=== PATIENT | female | born 1985 | race Two or more races ===

== ENCOUNTER → 2016-11-29 | Outpatient (CLI) | payer OTHER ==
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
== END ==
LOC: M PAIN 15:20
PROVIDERS: ATTEND Anesthesiology
DX: M79.2 Neuralgia and neuritis, unspecified (principal); G89.29 Other chronic pain; Z88.5 Allergy status to narcotic agent

== ENCOUNTER → 2017-01-14 | Outpatient (CLI) | payer OTHER ==
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
== END | disposition home or self-care (01) ==
LOC: M PAIN 15:45
PROVIDERS: ATTEND Anesthesiology
DX: G89.29 Other chronic pain (principal); G97.1 Other reaction to spinal and lumbar puncture; M79.2 Neuralgia and neuritis, unspecified; M62.82 Rhabdomyolysis; Z79.899 Other long term (current) drug therapy; Z88.2 Allergy status to sulfonamides; Z88.5 Allergy status to narcotic agent

== ENCOUNTER 2017-04-28 17:46 | Inpatient (IN) | payer OTHER ==
[2017-04-28 20:05] LABS: MEAN CORPUSCULAR HEMOGLOBIN 29.3 pg (27.0-33.0); MEAN CORPUSCULAR HGB CONC 33.4 g/dl (32.0-36.5); MEAN CORPUSCULAR VOLUME 87.5 fl (80.0-96.0); PLATELET COUNT, AUTOMATED 254 10^3/uL (150-450); RED CELL DISTRIBUTION WIDTH 14.1 % (11.5-14.5); WHITE BLOOD COUNT 10.6 10^3/uL (4.0-10.0)
[2017-04-29] MEDS ORDERED: MEASLES,MUMPS,RUBELLA VACCINE INJ (MMR-II) (90707) SC (01:15)
[2017-04-29] MEDS ORDERED: ACETAMINOPHEN TAB 650MG DOSE (2X325MG) PO (01:15)
[2017-04-29] MEDS ORDERED: IBUPROFEN 800 MG TAB PO (01:15)
[2017-04-29] MEDS ORDERED: DIBUCAINE 1% OINTMENT 30GM TOP (01:15)
[2017-04-29] MEDS ORDERED: OXYTOCIN 30 UNITS IN 0.9% NaCl 500ML IV BAG (J2590) As Ordered (04:32)
[2017-04-29] MEDS: PRENATAL VITAMINS CHEWABLE TABLET PO (09:14)
[2017-04-29] MEDS: DOCUSATE SODIUM 100 MG CAP PO ×2 (09:14→21:00)
[2017-04-29 19:37] LABS: FETAL SCREEN PROF. 1 1
[2017-04-29] MEDS: RHOGAM 300 MCG (1500 IU) INJ (J2790) IM (19:56)
[2017-04-30] MEDS: DOCUSATE SODIUM 100 MG CAP PO (08:32)
[2017-04-30] MEDS: PRENATAL VITAMINS CHEWABLE TABLET PO (08:32)
== END 2017-04-30 11:05 | disposition home or self-care (01) | DRG 775 ==
LOC: M LDO 17:46 → M OBS 04-29 03:17 → M LDI 18:43
PROC: 10E0XZZ Delivery of Products of Conception, External Approach (ICD-10-PCS; principal; 2017-04-29)
DX: O80 Encounter for full-term uncomplicated delivery (principal); Z37.0 Single live birth; Z3A.39 39 weeks gestation of pregnancy